=== PATIENT | female | born 1990 | race African-American/Black ===

== ENCOUNTER 2017-02-23 17:09 | Emergency (ER) | payer OTHER ==
[2017-02-23 17:12] LABS: URINE SOURCE CLEAN CATCH
[2017-02-23 17:32] LABS: URINE APPEARANCE TURBID; URINE BILIRUBIN NEG (NEG); URINE BLOOD NEG (NEG); URINE COLOR YELLOW; URINE GLUCOSE NEG (NEG); URINE KETONE NEG (NEG); URINE LEUKOCYTE ESTERASE NEG (NEG); URINE NITRATE NEG (NEG); URINE PROTEIN NEG (NEG)
[2017-02-23 17:40] LABS: CULTURE INDICATED? NO
[2017-02-26 03:16] LABS: CHLAMYDIA TRACH Not Detected (Not Detected); N GONOR Not Detected (Not Detected)
== END 2017-02-23 20:07 | disposition home or self-care (01) ==
LOC: CFTX 17:09
PROVIDERS: Nurse Practitioner
DX: O98.312 Other infections with a predominantly sexual mode of transmission complicating pregnancy, second trimester (principal); A59.03 Trichomonal cystitis and urethritis; O23.592 Infection of other part of genital tract in pregnancy, second trimester; N76.0 Acute vaginitis
CPT/HCPCS: 81003; 84703; 87491; 87591; 87808; 87905; 96372; 99284; J0696

== ENCOUNTER 2017-05-26 13:39 | Emergency (ER) | payer OTHER ==
[~2017-05-26] VITALS: Ht 157.5 cm; Wt 74.8 kg
[2017-05-26 15:23] LABS: BASOPHIL# 0.1 X10e3 (0-0.3); BASOPHIL% 1.3 % (0-2.5); EOSINOPHIL# 0.1 X10e3 (0-0.7); EOSINOPHIL% 1.2 % (0.0-7.0); HEMATOCRIT 37.2 % (35.0-45.0); HEMOGLOBIN 12.4 gm/dL (12.0-16.0); LYMPHOCYTE# 3.1 X10e3 (1.0-3.5); MEAN CELL VOLUME 91.2 FL (83-96); MEAN CORPUSCULAR HEMOGLOBIN 30.3 PG (28-34); MEAN CORPUSCULAR HGB CONC 33.3 g/dL (30-36); MEAN PLATELET VOLUME 7.9 FL (6.5-11.5); MONOCYTE# 0.8 X10e3 (0-1.0); MONOCYTE% 7.8 % (3.0-12.0); NEUTROPHIL# 5.8 X10e3 (1.5-7.1); NEUTROPHIL% 58.7 % (40-75); PLATELET COUNT 336 X10e3 (140-420); RED BLOOD COUNT 4.07 X10e (3.90-5.30); RED CELL DISTRIBUTION WIDTH 13.9 % (11.0-15.5); WHITE BLOOD COUNT 9.9 X10e3 (4.0-10.5)
[2017-05-26 15:27] LABS: DIFF IND NO
[2017-05-26 15:51] LABS: ALBUMIN SERUM 2.9 g/dL (3.5-5.0); ALKALINE PHOSPHATASE 72 U/L (32-92); ALT (SGPT) 11 U/L (10-40); AST (SGOT) 16 U/L (10-42); BILIRUBIN, DIRECT 0.1 mg/dL (0.0-0.2); BILIRUBIN,INDIRECT 0.3 mg/dL (0.0-0.9); BILIRUBIN,TOTAL 0.4 mg/dL (0.2-2.0); CALCIUM SERUM 8.2 mg/dL (8.4-10.2); CARBON DIOXIDE 19 mmol/L (22-31); CHLORIDE 106 mmol/L (100-111); CREATININE SERUM 0.5 mg/dL (0.6-1.4); GLOM FILT RATE Estimated 152.7 mL/min (>60); GLUCOSE FASTING 89 mg/dL (70-110); POTASSIUM 3.8 mmol/L (3.5-5.1); PROTEIN TOTAL SERUM 6.4 g/dL (6.0-8.3); SODIUM 133 mmol/L (135-145)
[2017-05-26 15:52] LABS: BLOOD UREA NITROGEN <5 mg/dL (9-23)
== END 2017-05-26 16:22 | disposition short-term general hospital (02) ==
LOC: CED 13:39
PROVIDERS: Emergency Medicine
DX: O99.89 Other specified diseases and conditions complicating pregnancy, childbirth and the puerperium (principal); R10.9 Unspecified abdominal pain; Z3A.00 Weeks of gestation of pregnancy not specified
CPT/HCPCS: 36415; 80048; 80076; 85025; 99285